=== PATIENT | female | born 1955 | race Caucasian/White ===

== ENCOUNTER 2019-08-30 08:01 | Outpatient (CLI) | payer BC, SELFPAY ==
[2019-08-30 09:13] LABS: Erythrocyte Sedimentation Rate 23 mm/hr (0-20)
[2019-08-30 09:19] LABS: Rheumatoid Factor < 8.6 IU/ML (<12)
[2019-08-30 09:58] LABS: Free T4 Free Thyroxine 1.79 ng/mL (0.78-2.19)
[2019-08-30 10:13] LABS: Folic Acid 10.4 ng/mL (2.76->20)
[2019-09-03 21:21] LABS: Triiodothyronine T3 Free 2.6 pg/mL (2.3-4.2)
== END 2019-08-30 08:02 | disposition home or self-care (01) ==
PROVIDERS: PCP Family Medicine; Visit Provider Internal Medicine Endocrinology, Diabetes & Metabolism
DX: E03.9 Hypothyroidism, unspecified (principal); Z86.012 Personal history of benign carcinoid tumor; R53.83 Other fatigue
CPT/HCPCS: 36415; 82607; 82746; 84439; 84443; 84481; 85652; 86038; 86039; 86140; 86430

== ENCOUNTER 2019-09-17 08:43 | Outpatient (CLI) | payer BC, SELFPAY ==
[2019-09-20 16:16] LABS: Chromogranin A 219 ng/mL (25-140)
== END 2019-09-17 08:44 | disposition home or self-care (01) ==
PROVIDERS: PCP Family Medicine; Visit Provider Internal Medicine Endocrinology, Diabetes & Metabolism
DX: E03.9 Hypothyroidism, unspecified (principal); Z86.012 Personal history of benign carcinoid tumor; R53.83 Other fatigue
CPT/HCPCS: 36415; 83497; 86316

== ENCOUNTER 2019-10-15 13:20 | Outpatient (CLI) | payer BC, MEDICARE, SELFPAY ==
[2019-10-19 18:11] LABS: Chromogranin A 220 ng/mL (25-140)
== END 2019-10-15 13:21 | disposition home or self-care (01) ==
PROVIDERS: PCP Family Medicine; Visit Provider Internal Medicine Endocrinology, Diabetes & Metabolism
DX: Z86.012 Personal history of benign carcinoid tumor (principal)
CPT/HCPCS: 36415; 86316

== ENCOUNTER 2020-03-18 13:28 | Outpatient (CLI) | payer MEDICARE, BC, SELFPAY ==
--- NOTE | ~2020-03-18 | MM_ITS ---
EXAMINATION: MM screening bisi BI w marilu HISTORY: Screening mammogram TECHNIQUE: Craniocaudal and mediolateral oblique 3-D tomosynthesis images were obtained and synthetic 2-D images were generated. CAD analysis was submitted and interpreted. COMPARISON: No prior mammogram is available for comparison at this institution. BREAST PARENCHYMAL COMPOSITION: The breasts are almost entirely fatty. FINDINGS: There is no evidence of suspicious mass, calcification, or architectural distortion to sugg est malignancy in either breast. There has been no suspicious interval change. IMPRESSION: 1. No mammographic evidence of malignancy. 2. Recommend routine screening mammography in one year. BI-RADS Category 1: Negative Reviewed, dictated and finalized at location A.
== END 2020-03-18 13:29 | disposition home or self-care (01) ==
LOC: ANHIMG 13:31
PROVIDERS: PCP Family Medicine; Visit Provider Family Medicine
DX: Z12.31 Encounter for screening mammogram for malignant neoplasm of breast (principal)
CPT/HCPCS: 77063; 77067

== ENCOUNTER 2021-03-25 14:12 | Outpatient (CLI) | payer MEDICARE, SELFPAY ==
--- NOTE | ~2021-03-25 | MM_ITS ---
EXAMINATION: MM screening bisi BI w marilu HISTORY: Screening TECHNIQUE: Craniocaudal and mediolateral oblique 3-D tomosynthesis images were obtained and synthetic 2-D images were generated. CAD analysis was submitted and interpreted. COMPARISON: Comparison to multiple prior studies sequentially, with oldest reviewed study dated 03/18. BREAST PARENCHYMAL COMPOSITION: There are scattered areas of fibroglandular density. FINDINGS: There is no evidence of suspicious mass, calcification, or architectural distortion to sugg est malignancy in either breast. There has been no suspicious interval change. IMPRESSION: 1. No mammographic evidence of malignancy. 2. Recommend routine screening mammography in one year. BI-RADS Category 1: Negative Reviewed, dictated and finalized at location A.
== END 2021-03-25 14:13 | disposition home or self-care (01) ==
LOC: ANHIMG 14:29
PROVIDERS: PCP Family Medicine; Visit Provider Family Medicine
DX: Z12.31 Encounter for screening mammogram for malignant neoplasm of breast (principal)
CPT/HCPCS: 77063; 77067

== ENCOUNTER 2022-01-17 01:44 | Day surgery (SDC) | payer MEDICARE, SELFPAY ==
[2021-12-31 11:51] VITALS: BMI 49.1
--- NOTE | 2022-01-16 12:15 | PM.HPGS ---
History of Present Illness History of Present Illness Consent: Risks, benefits, and alternatives have been discussed and questions answered. Patient agrees to proceed with procedure. Chief complaint: GERD Narrative: Tracy Mar is a 66 year old female Has been dealing with gastroesophageal reflux disease. She has heartburn that has been somewhat refractory to her omeprazole. She has added famotidine to that. She also is regurgitating food frequently. 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 She has had colon polyps as well, her last colonoscopy was 3 years ago Review of Systems Review of Systems: All systems reviewed & are unremarkable except as noted in HPI and below PMFSH Past Medical History Medical History Allergies GRUPO positive Anemia Anxiety Arthritis Carcinoid tumor Compression fracture Degenerative disc disease Diabetes Generalized osteoarthritis of multiple sites GERD (gastroesophageal reflux disease) Headache History of IBS HTN (hypertension) Morbid obesity with BMI of 45.0-49.9, adult HECTOR (obstructive sleep apnea) Thyroid disorder Vitamin D deficiency Surgical History Surgical History Delivery by section H/O arthroscopy of knee History of bunionectomy Hx of cholecystectomy Family History Family History Sibling Diabetes mellitus Family history of gout Family history of obesity Hypertension Acute myocardial infarction Father Acute myocardial infarction Hypertension Cerebrovascular accident Mother Family history of lung cancer Uterine cancer Social History Social History Smoking status: Never smoker Second hand tobacco smoke exposure: Yes Alcohol intake: current Alcohol use details: 1-2 a year Substance use: never Substance use type: does not use Living arrangements: with family Spiritual care concerns: No Meds Home Medications and Allergies Home Medications Medication Instructions Recorded Confirmed Type aspirin 81 mg tablet,delayed 81 mg PO DAILY 05/11/19 01/17/22 History release (Adult Low Dose Aspirin) lisinopril 5 mg tablet 5 mg PO DAILY 05/11/19 01/17/22 History metformin 500 mg tablet 500 mg PO BID 05/11/19 01/17/22 History omeprazole 20 mg capsule,delayed 20 mg PO DAILY 05/11/19 01/17/22 History release venlafaxine 75 mg capsule,extended 75 mg PO DAILY 05/11/19 01/17/22 History release 24 hr semaglutide 1 mg/dose (2 mg/1.5 1 mg subcut WEEKLY 03/19/21 01/17/22 History mL) subcutaneous pen injector (Ozempic) ergocalciferol (vitamin D2) 1,250 1,250 mcg PO WEEKLY 12/21/21 01/17/22 History mcg (50,000 unit) capsule levothyroxine 137 mcg tablet 137 mcg PO DAILY 12/21/21 01/17/22 History (Synthroid) pravastatin 40 mg tablet 20 mg PO DAILY 12/21/21 01/17/22 History cholestyramine-aspartame 4 gram 4 g PO DAILY #30 ea 12/23/21 01/17/22 Rx oral powder for susp in a packet (Cholestyramine Light) famotidine 20 mg tablet 20 mg PO DAILY 12/31/21 01/17/22 History liothyronine 5 mcg tablet 5 mcg PO BID 12/31/21 01/17/22 History Allergies Allergy/AdvReac Type Severity Reaction Status Date / Time cinnamon Allergy Severe MOUTH Verified 01/17/22 10:04 ULCERS acetaminophen [From Percocet] Allergy Mild Hives Verified 01/17/22 10:04 oxycodone [From Percocet] Allergy Mild Hives Verified 01/17/22 10:04 Exam Const: General: alert Orientation/consciousness: patient oriented x3 Resp: Auscultation: clear to auscultation bilaterally Cardio: Rhythm: regular rhythm GI: GI Palp: Yes Soft to palpation and No Tenderness to palpation present (GI) Neuro: General: patient oriented x3 Assessment and Plan Assessment
--- NOTE | 2022-01-17 09:14 | WPDANESEPPF ---
Anes - Initial Pre Proc Eval Procedure: Operation Date: 01/17/22 11:00 Proposed Procedures p Esophagogastroduodenoscopy - Franco Fox MD Date/Time: 01/17/22 09:14 Surgeon: Franco Fox MD Pre Op Diagnosis: GERD Patient Data Age: 66 Gender: F Height: 1.55 m Weight: 118 kg Allergies Allergy/AdvReac Type Severity Reaction Status Date / Time cinnamon Allergy Severe MOUTH Verified 01/17/22 10:04 ULCERS acetaminophen [From Percocet] Allergy Mild Hives Verified 01/17/22 10:04 oxycodone [From Percocet] Allergy Mild Hives Verified 01/17/22 10:04 Home Medications Medication Instructions Recorded Confirmed Type aspirin 81 mg tablet,delayed 81 mg PO DAILY 05/11/19 01/17/22 History release (Adult Low Dose Aspirin) lisinopril 5 mg tablet 5 mg PO DAILY 05/11/19 01/17/22 History metformin 500 mg tablet 500 mg PO BID 05/11/19 01/17/22 History omeprazole 20 mg capsule,delayed 20 mg PO DAILY 05/11/19 01/17/22 History release venlafaxine 75 mg capsule,extended 75 mg PO DAILY 05/11/19 01/17/22 History release 24 hr semaglutide 1 mg/dose (2 mg/1.5 1 mg subcut WEEKLY 03/19/21 01/17/22 History mL) subcutaneous pen injector (Ozempic) ergocalciferol (vitamin D2) 1,250 1,250 mcg PO WEEKLY 12/21/21 01/17/22 History mcg (50,000 unit) capsule levothyroxine 137 mcg tablet 137 mcg PO DAILY 12/21/21 01/17/22 History (Synthroid) pravastatin 40 mg tablet 20 mg PO DAILY 12/21/21 01/17/22 History cholestyramine-aspartame 4 gram 4 g PO DAILY #30 ea 12/23/21 01/17/22 Rx oral powder for susp in a packet (Cholestyramine Light) famotidine 20 mg tablet 20 mg PO DAILY 12/31/21 01/17/22 History liothyronine 5 mcg tablet 5 mcg PO BID 12/31/21 01/17/22 History Patient hx anesthesia problems: none Family hx anesthesia problems: none Results Review: All pre-operative results and documents have been reviewed as part of the pre-operative evaluation. [facility] Past Medical History Medical History (Updated 01/17/22 @ 09:15 by Amador Parikh MD) Allergies GRUPO positive Anemia Anxiety Arthritis Carcinoid tumor Compression fracture Degenerative disc disease Diabetes Generalized osteoarthritis of multiple sites GERD (gastroesophageal reflux disease) Headache History of IBS HTN (hypertension) Morbid obesity with BMI of 45.0-49.9, adult HECTOR (obstructive sleep apnea) Thyroid disorder Vitamin D deficiency Surgical History Surgical History Delivery by section H/O arthroscopy of knee History of bunionectomy Hx of cholecystectomy Family History Family History Sibling Diabetes mellitus Family history of gout Family history of obesity Hypertension Acute myocardial infarction Father Acute myocardial infarction Hypertension Cerebrovascular accident Mother Family history of lung cancer Uterine cancer Social History Social History Smoking status: Never smoker Second hand tobacco smoke exposure: Yes Alcohol intake: current Alcohol use details: 1-2 a year Substance use: never Substance use type: does not use Living arrangements: with family Spiritual care concerns: No Anes - Eval Final PreProcedure Day of Procedure 01/17/22 09:14 Patient weight: obese Heart: regular rate and rhythm Lungs: clear to auscultation and normal air movement Airway: Mallampati scale class II Neurological: alert and oriented Last oral intake: >/= 8 hours ASA classification: III Emergent: no Anesthetic plan: proceed Anesthesia type and monitoring: general GIVS Results Review: All pre-operative results and documents have been reviewed as part of the pre-operative evaluation. Informed Consent: The patient's anesthetic plan and its attendant risks and benefits were discussed with the patient/family/POA. Questions
[2022-01-17 10:06] VITALS: BP 135/69; PULSE 64; RESP 20; TEMP 36.2; O2SAT 97
[2022-01-17] MEDS: LACTATED RINGERS 1,000 ML 150 ML IV CONT (10:26)
[2022-01-17 10:29] LABS: Glucose Point of Care 108 mg/dl (65-105)
[2022-01-17 10:59] VITALS: BP 129/78; PULSE 72; RESP 19; O2SAT 100
[2022-01-17 11:09] VITALS: BP 137/78; PULSE 75; RESP 23; O2SAT 100
[2022-01-17 11:19] VITALS: BP 145/84; PULSE 66; RESP 18; O2SAT 100
== END 2022-01-17 11:31 | disposition home or self-care (01) ==
PROVIDERS: PCP Family Medicine; Referring Provider Internal Medicine Endocrinology, Diabetes & Metabolism; Visit Provider Internal Medicine Gastroenterology
PROC: 0DJ08ZZ Inspection of Upper Intestinal Tract, Via Natural or Artificial Opening Endoscopic (ICD-10-PCS; CPT 43235; principal; 2022-01-17 11:00)
DX: K21.00 Gastro-esophageal reflux disease with esophagitis, without bleeding (principal); K31.84 Gastroparesis; E03.9 Hypothyroidism, unspecified; Z79.82 Long term (current) use of aspirin; Z79.84 Long term (current) use of oral hypoglycemic drugs; E66.01 Morbid (severe) obesity due to excess calories; Z68.43 Body mass index [BMI] 50.0-59.9, adult; D64.9 Anemia, unspecified; F41.9 Anxiety disorder, unspecified; M19.90 Unspecified osteoarthritis, unspecified site; E11.9 Type 2 diabetes mellitus without complications; K58.9 Irritable bowel syndrome, unspecified; I10 Essential (primary) hypertension; G47.33 Obstructive sleep apnea (adult) (pediatric); E55.9 Vitamin D deficiency, unspecified
CPT/HCPCS: 43239; 82948; 88305; 88313; J2704; J7120

== ENCOUNTER 2022-02-13 13:04 | Emergency (ER) | payer MEDICARE, SELFPAY ==
--- NOTE | ~2022-02-13 | XR_ITS ---
EXAM: XR hand LT min 3V DATE: 02/13/2022 14:37 HISTORY: thumb and hand pain after fall, BEST POSTIONING OBTAINED . COMPARISON: X-ray forearm 02/13/2022. FINDINGS: Decreased mineralization. No fracture or dislocation. No lytic or blastic lesion. Scattere d mild osteoarthritis in the fingers. Severe osteoarthritic change in the triscaphe and trapeziometac arpal joints. No erosion or periosteal change. Soft tissues within normal limits. Screw and plate fix ation of the distal radius, without complication. IMPRESSION: No acute osseous finding in the left hand. Reviewed, dictated and finalized at location K.
--- NOTE | ~2022-02-13 | XR_ITS ---
EXAMINATION: XR elbow LT 2V, XR forearm LT 2V DATE: 02/13/2022 13:38 INDICATION: Left elbow injury. TECHNIQUE: 2 views of left elbow and 2 views on 3 radiographs of the left forearm were obtained. COMPARISON: None. FINDINGS: LEFT ELBOW: There is a comminuted fracture of proximal ulna including the olecranon and proximal diap hysis. The main distal fracture fragment demonstrates 14 mm distraction, 33 degrees volar angulation. There is a nondisplaced fracture of radial head involving 1/5 of the articular surface. There is an elbow joint effusion. Soft tissue swelling is noted. LEFT FOREARM: There is an old healed fracture of distal radius with volar plate and screws. There is severe osteoarthritis of triscaphe joint and mild osteoarthritis of first carpometacarpal joint. IMPRESSION: 1. Comminuted fracture of proximal ulna. 2. Radial head fracture. 3. Elbow joint effusion. Reviewed, dictated and finalized at location A. IMPRESSION: 1. Comminuted fracture of proximal ulna. 2. Radial head fracture. 3. Elbow joint effusion.
[2022-02-13 13:10] VITALS: PULSE 75; RESP 16; TEMP 36.3; O2SAT 99
[2022-02-13] MEDS: HYDROcodone/acetaminophen (*CRX) 5-325 MG TABLET 1 TAB PO (14:23)
--- NOTE | 2022-02-13 14:35 | ED.GENADULT ---
HPI - General Adult General Chief complaint: Fall Stated complaint: fall Time Seen by Provider: 02/13/22 13:36 History of Present Illness HPI narrative: 66-year-old female presented to the emergency department for evaluation of left arm pain after having a ground-level fall. Patient states she tripped over a curb and her left elbow struck the curb. Patient denies striking her head denies loss consciousness. Related Data Home Medications Medication Instructions Recorded Confirmed aspirin 81 mg tablet,delayed 81 mg PO DAILY 05/11/19 01/17/22 release (Adult Low Dose Aspirin) lisinopril 5 mg tablet 5 mg PO DAILY 05/11/19 01/17/22 metformin 500 mg tablet 500 mg PO BID 05/11/19 01/17/22 omeprazole 20 mg capsule,delayed 20 mg PO DAILY 05/11/19 01/17/22 release venlafaxine 75 mg capsule,extended 75 mg PO DAILY 05/11/19 01/17/22 release 24 hr semaglutide 1 mg/dose (2 mg/1.5 1 mg subcut WEEKLY 03/19/21 01/17/22 mL) subcutaneous pen injector (Ozempic) ergocalciferol (vitamin D2) 1,250 1,250 mcg PO WEEKLY 12/21/21 01/17/22 mcg (50,000 unit) capsule levothyroxine 137 mcg tablet 137 mcg PO DAILY 12/21/21 01/17/22 (Synthroid) pravastatin 40 mg tablet 20 mg PO DAILY 12/21/21 01/17/22 famotidine 20 mg tablet 20 mg PO DAILY 12/31/21 01/17/22 liothyronine 5 mcg tablet 5 mcg PO BID 12/31/21 01/17/22 Allergies Allergy/AdvReac Type Severity Reaction Status Date / Time cinnamon Allergy Severe MOUTH Verified 02/13/22 13:41 ULCERS acetaminophen [From Percocet] Allergy Mild Hives Verified 02/13/22 13:41 oxycodone [From Percocet] Allergy Mild Hives Verified 02/13/22 13:41 Review of Systems Review of Systems: CONSTITUTIONAL: Denies fever, chills, or sweats. EYES: Denies visual changes, redness, or discharge. ENT: Denies rhinorrhea, congestion, sore throat, or otalgia. CARDIOVASCULAR: Denies chest pain, palpitations, or edema. RESPIRATORY: Denies cough or dyspnea. GASTROINTESTINAL: Denies abdominal pain, nausea, vomiting, or diarrhea. GENITOURINARY: Denies dysuria or hematuria. SKIN: Denies rash or itching. MUSCULOSKELETAL: See HPI NEUROLOGIC: Denies headache, numbness, or weakness. PSYCHIATRIC: Denies anxiety or depression. PMFSH Past Medical History Medical History Allergies GRUPO positive Anemia Anxiety Arthritis Carcinoid tumor Compression fracture Degenerative disc disease Diabetes Generalized osteoarthritis of multiple sites GERD (gastroesophageal reflux disease) Headache History of IBS HTN (hypertension) Morbid obesity with BMI of 45.0-49.9, adult HECTOR (obstructive sleep apnea) Thyroid disorder Vitamin D deficiency Surgical History Surgical History Delivery by section H/O arthroscopy of knee History of bunionectomy Hx of cholecystectomy Family History Family History Sibling Diabetes mellitus Family history of gout Family history of obesity Hypertension Acute myocardial infarction Father Acute myocardial infarction Hypertension Cerebrovascular accident Mother Family history of lung cancer Uterine cancer Social History Social History Smoking status: Never smoker Second hand tobacco smoke exposure: Yes Alcohol intake: current Alcohol use details: 1-2 a year Substance use: never Substance use type: does not use Spiritual care concerns: No Exam Narrative: APPEARANCE: Well appearing, no pain, no distress, well-nourished. HEAD: normocephalic, atraumatic. EYES: PERRLA/EOMI, conjunctivae clear. NOSE: Normal no drainage NECK: Supple. No adenopathy, no masses. RESPIRATORY: Airway patent, respirations nonlabored. Clear to auscultation bilaterally, no rales, rhonchi, wheezing. CARDIOVASCULAR: Regular rate and rhythm without murmurs rubs or gallops. AB
[2022-02-13 14:51] VITALS: BP 154/66; PULSE 74; RESP 16; O2SAT 99
[2022-02-13 15:34] VITALS: BP 143/80; PULSE 74; RESP 16; TEMP 36.4; O2SAT 96
--- NOTE | 2022-02-18 15:30 | PC.NURSE ---
LONG ARM SPLINT APPLIED TO LUE, PMS INTACT PRIOR TO SPLINT AND AFTER SPLINT. PT TOLERATED PROCEDURE.
== END 2022-02-13 16:10 | disposition home or self-care (01) ==
PROVIDERS: Emergency Provider Emergency Medicine; PCP Family Medicine
DX: S42.402A Unspecified fracture of lower end of left humerus, initial encounter for closed fracture (principal); D64.9 Anemia, unspecified; F41.9 Anxiety disorder, unspecified; M19.90 Unspecified osteoarthritis, unspecified site; E11.9 Type 2 diabetes mellitus without complications; K21.9 Gastro-esophageal reflux disease without esophagitis; I10 Essential (primary) hypertension; Z79.84 Long term (current) use of oral hypoglycemic drugs; Z79.82 Long term (current) use of aspirin; W10.1XXA Fall (on)(from) sidewalk curb, initial encounter
CPT/HCPCS: 29105; 73070; 73090; 73130; 99284; A4565; A9270

== ENCOUNTER 2022-02-17 01:19 | Day surgery (SDC) | payer MEDICARE, SELFPAY ==
[2022-02-17] VITALS (9 sets, daily range): BP systolic 136–168; BP diastolic 66–85; PULSE 68–96; RESP 12–16; TEMP 36.1–36.2; O2SAT 98–100; BMI 49.8
--- NOTE | ~2022-02-17 | XR_ITS ---
EXAMINATION: XR surgery orthopedic DATE: 02/17/2022 15:28 INDICATION: Left ulnar fracture. TECHNIQUE: 3 intraoperative spot fluoroscopic views of left elbow were obtained. I was not present. F luoroscopy exposure time was 9 seconds. COMPARISON: Left elbow radiographs 02/16/2022 FINDINGS: There is a comminuted fracture of proximal ulna status post open reduction internal fixatio n with plate and screws. The main distal fracture fragment demonstrates near-anatomic alignment. Agai n seen is a fracture of radial head with mild displacement. IMPRESSION: 1. Comminuted fracture of proximal ulna status post open reduction internal fixation. 2. Radial head fracture again seen. Reviewed, dictated and finalized at location A. IMPRESSION: 1. Comminuted fracture of proximal ulna status post open reduction internal fix ation. 2. Radial head fracture again seen.
--- NOTE | 2022-02-17 07:21 | WPDHPUPDATE1 ---
History and Physical Update Update Date/Time: 02/17/22 07:21 History and Physical has been reviewed, including an updated exam of the patient. There are NO changes in the patient's condition. Risks, benefits, and alternatives have been discussed and questions answered. Patient agrees to proceed with procedure.
--- NOTE | 2022-02-17 08:45 | PC.NURSE ---
Report to the Outpatient Waiting Room, entrance under the green pavilion located off [facility], at time 1130 on date 02/17/22. OR Time: 1330. - You and your visitor will be asked to self-screen and do not enter if you have any COVID symptoms. - Only one visitor and NO children visitors are allowed at this time. - The patient visitor is requested to leave or wait in car when not with patient due to restrictions. - A mask is required within the hospital. Patients may have clear liquids (water, carbonated beverages, clear teas, apple juice) until 3 hours prior to surgery with a maximum of 20 ounces. - No food from midnight until time of surgery Take the following medications with a SIP of water the morning of surgery: LEVOTHYROXINE, LIOTHYRONINE, VENLAFAXINE, PAIN PILL (IF NEEDED) Medications to discontinue per physician: N/A - SURGERY TODAY Date to take last dose: N/A Please no make-up, nail turkmen, hairspray, perfume, deodorant, or body powder the day of surgery. No jewelry (including any body piercings) or valuables the day of surgery, leave them at home. Please take a shower or bath the night before, or the morning of, surgery with an antibacterial soap. Wear comfortable, loose fitting clothing. - Jewelry must be removed prior to entering the operating room. Rings and piercings that are not removed may be cut off. - The hospital will not accept responsibility for valuables. - Please leave all valuables, including medications, at home the day of surgery. If you are going home after surgery, a licensed electric lift truck driver must drive you home. - NO public transportation without another adult. - We recommend that an adult stay with you for 24 hours following discharge. - We also recommend that you do not drive, make important decision, drink alcoholic beverages, or take any drugs that were not prescribed by your health care provider for at least 24 hours after your discharge time. Follow any additional instructions given to you from your surgeon. If you or anyone in your household have experienced Covid symptoms in the past week, please notify your surgeon or the nurse liaison at the phone number below for possible testing. Telephone instructions given to PT - PRAVEEN WILKINSON and asked if any additional questions and then verbalized understanding. Patient advised to call surgeon office or pre surgery nurse liaison [phone] if any additional questions.
--- NOTE | 2022-02-17 10:11 | ECG_ITS ---
Measurements Intervals [place] Rate: 75 P: MD: 0 QRS: -27 QRSD: 94 T: -41 QT: 366 QTc: 411 Interpretive Statements PROBABLE SINUS RHYTHM BASELINE ARTIFACT LOW QRS VOLTAGE IN PRECORDIAL LEADS MINIMAL VOLTAGE CRITERIA FOR LVH, CONSIDER NORMAL VARIANT POSSIBLE ANTERIOR MYOCARDIAL INFARCTION, PROBABLY OLD ABNORMAL ECG NO PREVIOUS ECG AVAILABLE FOR COMPARISON Electronically Signed On 02-17-2022 15:28:25 CDT by Khalif Chavez M.D.
[2022-02-17] MEDS: ACETAMINOPHEN 500 MG TABLET 1000 MG PO (12:12)
[2022-02-17] MEDS: KETOROLAC 15 MG/ML VIAL (*BKC) IV PUSH (12:15)
[2022-02-17] MEDS: fentaNYL CITRATE INJ (*CRX) 100 MCG/2 ML VIAL 50 MCG IV PUSH (12:48)
--- NOTE | 2022-02-17 12:59 | WPDANESEPPF ---
Anes - Initial Pre Proc Eval Procedure: Operation Date: 02/17/22 13:30 Proposed Procedures p Open Reduction Internal Fixation Left Olecranon Fracture - Richie Hernandez MD Date/Time: 02/17/22 12:59 Surgeon: Richie Hernandez MD Pre Op Diagnosis: left elbow fx Patient Data Age: 66 Gender: F Height: 1.55 m Weight: 119.75 kg Allergies Allergy/AdvReac Type Severity Reaction Status Date / Time cinnamon Allergy Severe MOUTH Verified 02/17/22 12:59 ULCERS oxycodone [From Percocet] Allergy Mild Hives Verified 02/17/22 12:59 hydrocodone Allergy Unknown Itching Verified 02/17/22 12:59 Home Medications Medication Instructions Recorded Confirmed Type aspirin 81 mg tablet,delayed 81 mg PO DAILY 05/11/19 02/17/22 History release (Adult Low Dose Aspirin) lisinopril 5 mg tablet 5 mg PO DAILY 05/11/19 02/17/22 History metformin 500 mg tablet 500 mg PO BID 05/11/19 02/17/22 History omeprazole 20 mg capsule,delayed 20 mg PO DAILY 05/11/19 02/17/22 History release venlafaxine 75 mg capsule,extended 75 mg PO DAILY 05/11/19 02/17/22 History release 24 hr semaglutide 1 mg/dose (2 mg/1.5 1 mg subcut WEEKLY 03/19/21 02/17/22 History mL) subcutaneous pen injector (Ozempic) ergocalciferol (vitamin D2) 1,250 1,250 mcg PO WEEKLY 12/21/21 02/17/22 History mcg (50,000 unit) capsule levothyroxine 137 mcg tablet 137 mcg PO DAILY 12/21/21 02/17/22 History (Synthroid) pravastatin 40 mg tablet 20 mg PO DAILY 12/21/21 02/17/22 History cholestyramine-aspartame 4 gram 4 g PO DAILY #30 ea 12/23/21 02/17/22 Rx oral powder for susp in a packet (Cholestyramine Light) famotidine 20 mg tablet 20 mg PO DAILY 12/31/21 02/17/22 History liothyronine 5 mcg tablet 5 mcg PO BID 12/31/21 02/17/22 History ondansetron 8 mg disintegrating 8 mg PO Q6-8H PRN nausea and 08/24/22 08/25/22 Rx tablet vomiting #10 tabs oxycodone-acetaminophen 5 mg-325 1 tablet PO Q4H PRN pain #30 tabs 02/16/22 02/17/22 Rx mg tablet (Percocet) sennosides 8.6 mg-docusate sodium 1 tab-cap PO BID #30 tabs 02/16/22 02/17/22 Rx 50 mg tablet Laboratory Tests 02/17/22 12:31 Sodium Pending Potassium Pending Chloride Pending Carbon Dioxide Pending Anion Gap Pending BUN Pending Creatinine Pending Estim Creat Clear Calc Pending Estimated GFR Pending Glucose Pending Calcium Pending Patient hx anesthesia problems: none Family hx anesthesia problems: none Results Review: All pre-operative results and documents have been reviewed as part of the pre-operative evaluation. [facility] Past Medical History Medical History (Updated 02/17/22 @ 08:31 by Radha Wilson) Allergies GRUPO positive Anemia Anxiety Arthritis B12 deficiency Carcinoid tumor Compression fracture Degenerative disc disease Depression Diabetes DVT (deep venous thrombosis) Generalized osteoarthritis of multiple sites GERD (gastroesophageal reflux disease) Headache History of anesthesia problem History of IBS HTN (hypertension) Hypothyroidism (acquired) IBS (irritable bowel syndrome) Morbid obesity with BMI of 45.0-49.9, adult Obstructive sleep apnea (adult) (pediatric) HECTOR (obstructive sleep apnea) Thyroid disorder Type 2 diabetes mellitus without complications Vitamin D deficiency Vitamin D deficiency Surgical History Surgical History (Updated 02/17/22 @ 08:31 by Radha Wilson) Delivery by section H/O arthroscopy of knee H/O wrist surgery Left wrist ORIF 2016 in [place] History of bunionectomy Hx of cholecystectomy Family History Family History (Updated 02/17/22 @ 08:31 by Radha Wilson) Sibling Diabetes mellitus Family history of gout Family history of obesity Hypertension Acute myocardial infarction Father Acute myocardial infarction Hypertension Cerebrovascular accident Mother Family history of lung cancer Uterine cancer Other C
[2022-02-17 13:19] LABS: Anion Gap 4 mmol/L (8-16); Blood Urea Nitrogen 11 mg/dL (7-17); Carbon Dioxide 29 mmol/L (22-30); Chloride 101 mmol/L (98-107); Estimated CRCL calculation 81 ml/min; Estimated Glomerular Filt Rate > 60; Glucose 149 mg/dL (65-110); Potassium 3.8 mmol/L (3.4-5.0); Sodium 134 mmol/L (137-145)
[2022-02-17] MEDS: ceFAZolin 3 GM/D5W 100 ML 100 ML IVPB (13:55)
[2022-02-17] MEDS: BUPIVACAINE HCL 0.5% PF 30 ML VIAL INFILTRATE (14:54)
[2022-02-17] MEDS: LACTATED RINGERS 1,000 ML 30 ML IV CONT ×2 (15:51)
--- NOTE | 2022-02-17 15:57 | P.OP_ITS ---
Procedure Note - Detailed Date of Procedure 02/17/22 Pre-op Diagnosis left elbow fx Post-op Diagnosis Same Procedure Performed Open reduction internal fixation left elbow olecranon fracture. Surgeon Richie Hernandez MD [employer] 1st medical laboratory assistant Anesthesia General Indications 66-year-old woman fell on left elbow and sustained a comminuted olecranon fracture with displacement. Also radial head fracture. Presents for operative treatment. Findings Comminuted displaced olecranon fracture. Radial head fracture with minimal displacement. Elbow joint with mild chondral injury humeral trochlea. Description of Procedure After informed consent the operative extremity was marked in the preoperative holding area. Patient received intravenous antibiotics. Patient taken to the operating room where they underwent general anesthesia. Positioned supine on operating table. Time-out performed confirming the patient, patient's site of surgery and the plan. Left upper extremity prepped and draped in the usual sterile surgical fashion using a ChloraPrep skin solution. Hand and wrist exsanguinated and arm tourniquet inflated to 250 mmHg. Posterior incision to the olecranon made with a 15 blade knife. Hemostasis controlled with electrocautery. Fascia incised in line with skin incision. Soft tissue elevated off of the posterior aspect of the ulna and the fracture was identified. Large fracture gap and hematoma noted. This was suctioned and irrigated and suctioned again. A large butterfly fragment which in compass the coronoid portion ulna was noted. Radial head could be visualized and a minimally displaced fracture was noted. No fixation was felt to be indicated. The distal and proximal piece as well as a butterfly fragment were reduced and provisionally clamped. Image intensification confirm reduction. Fixation achieved with an olecranon plate from the [employer] set. Plate was provisionally secured to the bone with an olive wire and guide pins. Fixation then achieved with 3.0 mm screws proximally and 3.5 mm screws distally. Image intensification was used to guide placement of the screws. Final reduction of the fracture, alignment of the elbow joint and placement of the hardware verified with image intensification. Wound thoroughly irrigated with antibiotic solution. Fascia repaired with 0 Vicryl interrupted suture. Subcutaneous tissue repaired with 2- 0 Vicryl interrupted suture and skin repaired with 3-0 nylon running suture. Padded dressing and splint then applied. Tourniquet released and good capillary refill noted in the fingers and thumb. Patient awoke from anesthesia, extubated and taken to the recovery room in stable condition. All sponge and instrument counts correct at the end of case. Implants [employer] olecranon plate with 3.5 mm screws and one 3.0 mm screw. Estimated Blood Loss 50 Tourniquet Time 40 Drains No Packing No Pathology None sent Complications None Condition Stable Disposition PACU
[2022-02-17 16:17] LABS: Glucose Point of Care 125 mg/dl (65-105)
[2022-02-17] MEDS: fentaNYL CITRATE INJ (*CRX) 100 MCG/2 ML VIAL 25 MCG IV PUSH ×2 (16:34→16:49)
[2022-02-17] MEDS: oxyCODONE HCL (*CRX) 5 MG TAB IR PO (17:40)
== END 2022-02-17 18:25 | disposition home or self-care (01) ==
PROVIDERS: Anesthesiology; PCP Family Medicine; Visit Provider Orthopaedic Surgery
PROC: (CPT 24685; principal; 2022-02-17 13:30)
DX: S52.022A Displaced fracture of olecranon process without intraarticular extension of left ulna, initial encounter for closed fracture (principal); S52.122A Displaced fracture of head of left radius, initial encounter for closed fracture; W19.XXXA Unspecified fall, initial encounter; E11.9 Type 2 diabetes mellitus without complications; K21.9 Gastro-esophageal reflux disease without esophagitis; I10 Essential (primary) hypertension; G47.33 Obstructive sleep apnea (adult) (pediatric); E55.9 Vitamin D deficiency, unspecified; E66.01 Morbid (severe) obesity due to excess calories; Z68.42 Body mass index [BMI] 45.0-49.9, adult; E07.9 Disorder of thyroid, unspecified
CPT/HCPCS: 24685; 36415; 80048; 82948; 93005; 99199; A9270; C1713; J0330; J0690; J1885; J2250; J2370; J2405; J2704; J3010; J7120